=== PATIENT | male | born 1960 | race Native Hawaiian/Other Pacific Islander ===

== ENCOUNTER 2016-10-31 07:57 | Emergency (ER) | payer OTHER ==
[~2016-10-31] VITALS: Ht 172.7 cm; Wt 83.9 kg
[2016-10-31 08:03] VITALS: TEMP 98
[2016-10-31 08:40] LABS: POTASSIUM 3.3 mmol/L (3.6-5.2); SODIUM 140 mmol/L (136-145)
[2016-10-31 08:48] LABS: PLATELET COUNT 221 K/uL (142-355)
[2016-10-31 08:59] LABS: PARTIAL THROMBOPLASTIN TIME 26.8 SECONDS (24.5-33.6)
[2016-10-31 09:17] VITALS: BP 179/105
== END 2016-10-31 09:27 | disposition home or self-care (01) ==
LOC: ED 07:57
DX: K29.70 Gastritis, unspecified, without bleeding (principal); B96.81 Helicobacter pylori [H. pylori] as the cause of diseases classified elsewhere; I10 Essential (primary) hypertension
CPT/HCPCS: 36415; 80053; 82550; 84484; 85027; 85610; 85730; 86318; 93005; 99283